=== PATIENT | male | born 1970 | race Caucasian/White ===

== ENCOUNTER 2016-11-05 14:40 | Emergency (ER) | payer OTHER ==
--- NOTE | ~2016-11-05 | US85 ---
[facility] A Service of [facility] & [facility] RADIOLOGY TEXT RESULTS PATIENT: ADEN BARRON LOCATION: [facility] : 66 UNIT #: [id number] AGE: [address]: Juan Colon SEX: M ORDER DR: [id number] [facility] [address] [place], [place] [address] [id number] MR#: [id number] Acc #: [id number] NAME: ADEN BARRON. : 1970 SEX: M STUDY DATE/TIME: 11/05/2016 17:09 UNIT: [facility] ROOM: STUDY DESCRIPTION: [facility] [place] [employer] Attending Physician: Juan Colon Ordering Physician: Juan Colon (Res) Primary Care Physician: Primary Care Physician No MEDICAL IMAGING REPORT This report is preliminary unless electronic signature is present EXAM Left lower extremity venous ultrasound HISTORY Leg swelling for 2 weeks after IV drug use in ankle. TECHNIQUE Venous ultrasound examination of the left lower extremity was performed using grayscale, spectral Doppler and color flow Doppler imaging. FINDINGS The examination is negative. There is no evidence of left lower extremity deep venous thrombus from the groin to the lower calf. Visualized greater saphenous vein is also patent. IMPRESSION Negative examination. No evidence of left lower extremity deep venous thrombosis. Dictated by... Bernard Fajardo M.D. THIS IS AN ELECTRONICALLY VERIFIED REPORT Bernard Fajardo M.D. at 11/05/2016 10:24 PM DFL/psc TD: 11/05/2016 19:28 JOB #: [id number] MEDICAL IMAGING REPORT Page 1 of 1 COPY
== END 2016-11-05 18:00 | disposition home or self-care (01) ==
LOC: CFTX 14:40 → CED 14:40 → CFTX 16:12
DX: M25.472 Effusion, left ankle (principal); F19.10 Other psychoactive substance abuse, uncomplicated; F32.9 Major depressive disorder, single episode, unspecified; Z90.89 Acquired absence of other organs; Z98.890 Other specified postprocedural states
CPT/HCPCS: 93971; 99284

== ENCOUNTER 2017-02-23 19:36 | Emergency (ER) | payer OTHER ==
[~2017-02-23] VITALS: Ht 188 cm; Wt 86.2 kg
== END 2017-02-23 20:47 | disposition home or self-care (01) ==
LOC: CFTX 19:36 → CED 19:36 → CFTX 20:46
DX: R21 Rash and other nonspecific skin eruption (principal)
CPT/HCPCS: 99283